=== PATIENT | male | born 1985 | race American Indian/Alaskan Native ===

== ENCOUNTER 2018-09-27 13:39 | Emergency (ER) | payer SELFPAY ==
[2018-09-27 14:06] VITALS: BP 108/63
--- NOTE | 2018-09-27 14:08 | Emergency Department Report ---
Chief Complaint: Skin/Abscess/Foreign Body Stated Complaint: POSS STAPH INFECTION Time Seen by Provider: 09/27/18 14:05 - HPI History of Present Illness: This is a 33 y.o. male that presents with abscess to right hip x 4 days. - ROS Review of Systems: abscess to right hip - Exam Vital Signs: Vital Signs 09/27/18 14:05 Temperature 97.6 F Pulse Rate 62 Respiratory 18 Rate Blood Pressure 108/63 O2 Sat by Pulse 99 Oximetry MSE screening note: Focused history and physical exam performed. Due to findings the following was ordered: Fast track for further evaluation. ED Disposition for MSE Condition: Stable
[2018-09-27] MEDS ORDERED: BACTRIM DS PO ONE (15:00)
--- NOTE | 2018-09-27 15:03 | Emergency Department Report ---
Abscess Boil HPI - HPI Chief Complaint: Skin/Abscess/Foreign Body Stated Complaint: POSS STAPH INFECTION Time Seen by Provider: 09/27/18 14:05 Duration: 5 Days Location: Lower Extremity Severity: Mild History: Yes Purulent Drainage, Yes Insect Bite, No Fever, No Pain, No Numbness, No Foreign Body, No Previous History HPI: Patient has a previous history of staph of the skin. He was bit by an insect and comes in today with small nickel sized abscess to his right hip. The abscess is already draining. Patient is nontoxic and is afebrile. Home Medications: Previous Rx's Medication Instructions Recorded Last Taken Type Sulfamethoxazole/Trimethoprim 1 each PO BID #20 tablet 09/27/18 Unknown Rx [Bactrim DS TAB] Allergies/Adverse Reactions: Allergies Allergy/AdvReac Type Severity Reaction Status Date / Time No Known Allergies Allergy Unverified 09/27/18 13:41 ED Review of Systems ROS: Stated complaint: POSS STAPH INFECTION Other details as noted in HPI Comment: All other systems reviewed and negative Constitutional: denies: see HPI Eyes: denies: as per HPI ENT: denies: ear pain Respiratory: denies: cough Cardiovascular: denies: palpitations Endocrine: denies: excessive sweating Gastrointestinal: denies: nausea Genitourinary: denies: as per HPI Musculoskeletal: denies: back pain Skin: denies: rash Neurological: denies: headache Psychiatric: denies: anxiety Hematological/Lymphatic: denies: easy bleeding ED Past Medical Hx - Past Medical History Previous Medical History?: No - Surgical History Past Surgical History?: No - Family History Family history: no significant - Social History Smoking Status: Never Smoker Substance Use Type: None - Medications Home Medications: Home Medications Medication Instructions Recorded Confirmed Last Taken Type Sulfamethoxazole/Trimethoprim 1 each PO BID #20 tablet 09/27/18 Unknown Rx [Bactrim DS TAB] ED Abscess Boil Physical Exam - Exam General: Vital signs noted. No distress. Alert and acting appropriately. Size: 2 cm Exam: Yes Surrounding Cellulites/Erythema, Yes Normal Neurologic Exam, Yes Normal Circulation, No Tenderness, No Fluctuance, No Lymphangitis, No Crepitation, No Heart Murmur ED Course Vital Signs 09/27/18 14:05 Temperature 97.6 F Pulse Rate 62 Respiratory 18 Rate Blood Pressure 108/63 O2 Sat by Pulse 99 Oximetry Critical care attestation.: If time is entered above; I have spent that time in minutes in the direct care of this critically ill patient, excluding procedure time. ED Medical Decision Making - Medical Decision Making draining no I/D needed dc home with dc poc Vital Signs 09/27/18 14:05 Temperature 97.6 F Pulse Rate 62 Respiratory 18 Rate Blood Pressure 108/63 O2 Sat by Pulse 99 Oximetry ED Disposition Clinical Impression: Abscess Disposition: DC-01 TO HOME OR SELFCARE Is pt being admited?: No Does the pt Need Aspirin: No Condition: Stable Instructions: Abscess (ED) Additional Instructions: motrin or tylenol for pain meds as ordered today hydrate well with water follow up pcp referral below Referrals: [facility] [Outside] - 3-5 Days Time of Disposition: 15:02
== END 2018-09-27 15:23 | disposition home or self-care (01) ==
LOC: ED 13:39
DX: L02.415 Cutaneous abscess of right lower limb (principal)
CPT/HCPCS: 99282